=== PATIENT | female | born 1995 | race African-American/Black ===

== ENCOUNTER 2016-09-21 11:16 | Emergency (ER) | payer SELFPAY ==
[~2016-09-21] VITALS: Ht 165.1 cm; Wt 70.0 kg
[2016-09-21] MEDS ORDERED: ALBU2.5V13 IH (11:22)
[2016-09-21] MEDS ORDERED: LEVOFLOXACIN 500MG TABLET PO ONE (11:30)
[2016-09-21] MEDS ORDERED: PHENAZOPYRIDINE HCL 200MG TABLET PO ONE (11:30)
[2016-09-21 11:35] VITALS: BP 104/62
[2016-09-21 11:56] LABS: CLARITY URINE TURBID (CLEAR); COLOR URINE YELLOW (YELLOW); GLUCOSE URINE NEGATIVE (NEGATIVE); KETONES URINE NEGATIVE (NEGATIVE); LEUKOCYTE ESTERASE URINE 3+ (NEGATIVE); NITRITE URINE NEGATIVE (NEGATIVE); OCCULT BLOOD URINE 3+ (NEGATIVE); PH URINE 5.5 (4.5-8.0); PROTEIN URINE 1+ (NEGATIVE); SPECIFIC GRAVITY URINE 1.021 (1.005-1.030)
== END 2016-09-21 11:57 | disposition home or self-care (01) ==
LOC: ER 11:22
DX: N39.0 Urinary tract infection, site not specified (principal); J45.909 Unspecified asthma, uncomplicated
CPT/HCPCS: 81001; 81025; 99283; Z7610